=== PATIENT | male | born 1955 | race Caucasian/White ===

== ENCOUNTER 2022-02-17 04:36 | Day surgery (SDC) | payer OTHER, BC ==
[2022-02-15 15:55] VITALS: BMI 24.7
[2022-02-17 08:57] VITALS: RESP 16
[2022-02-17 11:26] VITALS: TEMP 98.2
[2022-02-17 11:56] VITALS: BP 148/64; PULSE 57
== END 2022-02-17 12:07 | disposition home or self-care (01) ==
LOC: JASU-ENDO 04:36
PROVIDERS: ATTEND Internal Medicine Gastroenterology
PROC: 0DJD8ZZ Inspection of Lower Intestinal Tract, Via Natural or Artificial Opening Endoscopic (ICD-10-PCS; principal; 2022-02-17 08:45)
DX: Z12.11 Encounter for screening for malignant neoplasm of colon (principal); Z86.010 Personal history of colon polyps

== ENCOUNTER 2022-11-17 14:17 | Inpatient (IN) | payer OTHER, BC ==
[2022-11-17] MEDS ORDERED: SODIUM CHLORIDE 1,987 ML IV ONE (14:43)
[2022-11-17 15:35] LABS: VENOUS BASE EXCESS -0.6 mmol/L (-2-2); VENOUS O2 SATURATION 41.3 % (70-80); VENOUS PCO2 62.6 mmHg (38-52); VENOUS PH 7.261 (7.310-7.410)
[2022-11-17 15:45] LABS: HEMATOCRIT 35.2 % (35.4-49); HEMOGLOBIN 11.8 GM/dL (11.7-16.9); MCH 30.4 pg (25.7-33.7); MCHC 33.4 g/dl (32.0-35.9); MEAN CELL VOLUME 90.9 fl (80-96); MEAN PLT VOLUME 8.4 fl (7.5-11.1); PLATELET COUNT 207 10^3/uL (134-434); RBC 3.87 M/mm3 (4.00-5.60); RDW 14.9 % (11.9-15.9); WHITE BLOOD COUNT 13.7 K/mm3 (4.0-10.0)
[2022-11-17 15:51] LABS: INR 1.1 (0.83-1.09); PROTHROMBIN TIME (PATIENT) 12.8 SEC (9.7-13.0)
[2022-11-17 15:54] LABS: ACTIVATED PTT 27.1 SECONDS (25.2-36.5)
[2022-11-17 16:14] LABS: CALCIUM 9.5 mg/dL (8.5-10.1)
[2022-11-17 16:15] LABS: ALBUMIN 3.7 g/dl (3.4-5.0); BLOOD UREA NITROGEN 36.7 mg/dL (7-18)
[2022-11-17 16:17] LABS: CREATININE 2.3 mg/dL (0.55-1.3)
[2022-11-17 16:19] LABS: BILIRUBIN,TOTAL 0.7 mg/dL (0.2-1); TOT PROT 8.3 g/dl (6.4-8.2)
[2022-11-17] MEDS ORDERED: ACETAMINOPHEN 1000 MG/100 ML BAG IVPB ONE (16:28)
[2022-11-17 16:33] LABS: ANISOCYTOSIS 1+; MACROCYTOSIS 0
[2022-11-17] MEDS ORDERED: ACETAMINOPHEN INJECTION 100 ML IVPB ONE (16:37)
[2022-11-17] MEDS ORDERED: PIPERACILLIN/TAZOB 3.375 GM 3.375 GM in DEXTROSE 5%-WATER - 50 ML IVPB ONE (17:09)
[2022-11-17] MEDS ORDERED: PIPERACILLIN/TAZOB 2.25 GM 2.25 GM/50 ML BAG IVPB ONE (17:17)
[2022-11-17] MEDS ORDERED: ALBUTEROL SO4 2.5/IPRATROPIUM 0.5 INH SOL 3 ML VIAL.NEB. NEB ONE ×2 (19:27→19:28)
[2022-11-17 20:27] LABS: EPI CELLS 2 /uL (0-25.1); HYALINE CASTS 2 /uL (0-3.1); PH,URINE 5.5 (5.0-8.0); URINE APPEARANCE CLEAR; URINE BACTERIA 11 /uL (0-1359); URINE BILIRUBIN NEGATIVE (NEGATIVE); URINE COLOR YELLOW; URINE GLUCOSE (UA) NEGATIVE (NEGATIVE); URINE KETONE NEGATIVE (NEGATIVE); URINE LEUK ESTERASE NEGATIVE (NEGATIVE); URINE NITRITE NEGATIVE (NEGATIVE); URINE PROTEIN 1+ (NEGATIVE); URINE RBC 7 /uL (0-23.9); URINE WBC 3 /uL (0-25.8)
[2022-11-17 21:17] LABS: VENOUS BASE EXCESS -7.3 mmol/L (-2-2); VENOUS O2 SATURATION 60.6 % (70-80); VENOUS PCO2 44.5 mmHg (38-52); VENOUS PH 7.257 (7.310-7.410)
[2022-11-17] MEDS ORDERED: LIDOCAINE 5% TOPICAL PATCH TP ONE (22:32)
[2022-11-17] MEDS ORDERED: PANTOPRAZOLE SODIUM 40 MG VIAL IVPUSH ONE (22:32)
[2022-11-17] MEDS ORDERED: guaiFENesin/D-METHORPHAN HB 10 ML UNIT-DOSE CUPS PO PRN (22:33)
[2022-11-17] MEDS ORDERED: MAG HYDROX/AL HYDROX/SIMETH 30 ML UNIT-DOSE CUP PO PRN (22:33)
[2022-11-17] MEDS ORDERED: DOCUSATE SODIUM 100 MG CAPSULE (FP) PO PRN (22:33)
[2022-11-17] MEDS ORDERED: ACETAMINOPHEN 1000 MG/100 ML BAG IVPB PRN (22:44)
[2022-11-17] MEDS ORDERED: PIPERACILLIN/TAZOB 2.25 GM 2.25 GM in DEXTROSE 5%-WATER - 50 ML IVPB SCH (23:00)
[2022-11-17] MEDS: SODIUM CHLORIDE 1,000 ML IV SCH (23:37)
[2022-11-18] MEDS: PIPERACILLIN/TAZOB 2.25 GM 2.25 GM in DEXTROSE 5%-WATER - 50 ML IVPB SCH ×2 (00:02→04:47)
[2022-11-18 07:38] LABS: BASO % 0.2 % (0-2.0); EOS % 0.7 % (0-4.5); HEMATOCRIT 28.1 % (35.4-49); HEMOGLOBIN 9.6 GM/dL (11.7-16.9); LYMPH % 9.1 % (8-40); MCH 30.7 pg (25.7-33.7); MCHC 34.1 g/dl (32.0-35.9); MEAN CELL VOLUME 90.2 fl (80-96); MEAN PLT VOLUME 7.7 fl (7.5-11.1); MONO % 6.2 % (3.8-10.2); NEUT % 83.8 % (42.8-82.8); PLATELET COUNT 148 10^3/uL (134-434); RBC 3.12 M/mm3 (4.00-5.60); RDW 14.5 % (11.9-15.9); WHITE BLOOD COUNT 13.6 K/mm3 (4.0-10.0)
[2022-11-18 07:43] LABS: POTASSIUM 4.3 mmol/L (3.5-5.1)
[2022-11-18 07:45] LABS: CALCIUM 8.6 mg/dL (8.5-10.1)
[2022-11-18 07:46] LABS: MAGNESIUM 1.9 mg/dL (1.8-2.4)
[2022-11-18 07:49] LABS: CREATININE 1.5 mg/dL (0.55-1.3); PHOSPHOROUS 3.3 mg/dL (2.5-4.9)
[2022-11-18] MEDS ORDERED: AZITHROMYCIN 250 MG TABLET PO ONE (09:00)
[2022-11-18] MEDS ORDERED: ENOXAPARIN NA (PORCINE) 30 MG/0.3 ML DISP.SYRIN SQ SCH (10:00)
[2022-11-18] MEDS ORDERED: methaDONE HCL 40 MG DISPERSABLE TABLET PO SCH (10:00)
[2022-11-18] MEDS: methylPREDNISolone NA SUCC 40 MG/1 ML VIAL IVPUSH SCH ×2 (10:19→17:33)
[2022-11-18] MEDS: CEFTRIAXONE 1 GM in DEXTROSE 5%-WATER - 50 ML IVPB SCH (10:21)
[2022-11-18] MEDS: ENOXAPARIN NA (PORCINE) 40 MG/0.4 ML DISP.SYRIN SQ SCH (10:22)
[2022-11-18] MEDS ORDERED: LIDOCAINE PATCH REMOVAL MC SCH (11:00)
[2022-11-18] MEDS: ALBUTEROL SO4 2.5/IPRATROPIUM 0.5 INH SOL 3 ML VIAL.NEB. NEB SCH ×3 (11:16→20:10)
[2022-11-18] MEDS ORDERED: PATIENT'S OWN MEDICATION (NON-FORMULARY) (Albuterol Sulfate [Proair Digihaler] 90 MCG Aer. IH SCH (11:45)
[2022-11-18] MEDS: amLODIPine BESYLATE 5 MG TABLET (FP) PO SCH (12:31)
[2022-11-18] MEDS: methaDONE 40 MG, methaDONE 10 MG PO SCH (12:31)
[2022-11-18] MEDS: SODIUM CHLORIDE 1,000 ML IV SCH (21:14)
[2022-11-18] MEDS: ATORVASTATIN CA 10 MG TABLET (FP) PO SCH (21:15)
[2022-11-19] MEDS: SODIUM CHLORIDE 1,000 ML IV SCH (00:59)
[2022-11-19] MEDS: methylPREDNISolone NA SUCC 40 MG/1 ML VIAL IVPUSH SCH ×3 (01:00→17:10)
[2022-11-19] MEDS: methaDONE 40 MG, methaDONE 10 MG PO SCH (05:56)
[2022-11-19] MEDS: ALBUTEROL SO4 2.5/IPRATROPIUM 0.5 INH SOL 3 ML VIAL.NEB. NEB SCH ×4 (07:35→20:20)
[2022-11-19 07:42] LABS: HEMATOCRIT 28.3 % (35.4-49); HEMOGLOBIN 9.7 GM/dL (11.7-16.9); MCH 31.2 pg (25.7-33.7); MCHC 34.3 g/dl (32.0-35.9); MEAN CELL VOLUME 90.9 fl (80-96); MEAN PLT VOLUME 8.5 fl (7.5-11.1); PLATELET COUNT 158 10^3/uL (134-434); RBC 3.12 M/mm3 (4.00-5.60); RDW 14.5 % (11.9-15.9); WHITE BLOOD COUNT 10.7 K/mm3 (4.0-10.0)
[2022-11-19 08:17] LABS: POTASSIUM 5.1 mmol/L (3.5-5.1)
[2022-11-19 08:20] LABS: CALCIUM 9.6 mg/dL (8.5-10.1)
[2022-11-19 08:21] LABS: BLOOD UREA NITROGEN 24.5 mg/dL (7-18)
[2022-11-19 08:24] LABS: CREATININE 1.3 mg/dL (0.55-1.3)
[2022-11-19] MEDS: CEFTRIAXONE 1 GM in DEXTROSE 5%-WATER - 50 ML IVPB SCH (09:23)
[2022-11-19] MEDS: ENOXAPARIN NA (PORCINE) 40 MG/0.4 ML DISP.SYRIN SQ SCH (09:23)
[2022-11-19] MEDS: amLODIPine BESYLATE 5 MG TABLET (FP) PO SCH (09:24)
[2022-11-19] MEDS: AZITHROMYCIN 250 MG TABLET PO SCH (09:26)
[2022-11-19 09:35] LABS: ANISOCYTOSIS 1+; MACROCYTOSIS 1+
[2022-11-19] MEDS ORDERED: TIOTROPIUM BROMIDE 2.5 MCG (SPIRIVA) RESPIMAT INHALER IH SCH ×2 (10:00)
[2022-11-19] MEDS: BUDESONIDE/FORMETEROL FUMARATE 160/4.5 mcg INHALER IH SCH ×2 (13:22→23:29)
[2022-11-19] MEDS ORDERED: ACETAMINOPHEN 1000 MG/100 ML BAG IVPB ONE (18:10)
[2022-11-19] MEDS ORDERED: INSULIN (NOVOLOG) ASPART 100 UNITS/ML 10ML VIAL ONE (21:08)
[2022-11-19] MEDS: ATORVASTATIN CA 10 MG TABLET (FP) PO SCH (21:28)
[2022-11-19] MEDS: INSULIN SLIDING SCALE (NOVOLOG) 1 VIAL SQ SCH (21:36)
[2022-11-19] MEDS: ACETAMINOPHEN 325 MG TABLET (FP) PO PRN (23:29)
[2022-11-20] MEDS: methylPREDNISolone NA SUCC 40 MG/1 ML VIAL IVPUSH SCH ×3 (01:53→17:26)
[2022-11-20] MEDS: methaDONE 40 MG, methaDONE 10 MG PO SCH (06:09)
[2022-11-20] MEDS: INSULIN SLIDING SCALE (NOVOLOG) 1 VIAL SQ SCH ×4 (06:12→23:28)
[2022-11-20] MEDS: ALBUTEROL SO4 2.5/IPRATROPIUM 0.5 INH SOL 3 ML VIAL.NEB. NEB SCH ×4 (07:30→20:21)
[2022-11-20] MEDS: AZITHROMYCIN 250 MG TABLET PO SCH (09:56)
[2022-11-20] MEDS: ENOXAPARIN NA (PORCINE) 40 MG/0.4 ML DISP.SYRIN SQ SCH (09:56)
[2022-11-20] MEDS: amLODIPine BESYLATE 5 MG TABLET (FP) PO SCH (09:56)
[2022-11-20] MEDS: CEFTRIAXONE 1 GM in DEXTROSE 5%-WATER - 50 ML IVPB SCH (09:56)
[2022-11-20] MEDS: BUDESONIDE/FORMETEROL FUMARATE 160/4.5 mcg INHALER IH SCH ×2 (09:57→23:25)
[2022-11-20 10:07] LABS: BASO % 0.1 % (0-2.0); HEMATOCRIT 28.3 % (35.4-49); HEMOGLOBIN 9.8 GM/dL (11.7-16.9); LYMPH % 2.8 % (8-40); MCH 31.1 pg (25.7-33.7); MCHC 34.5 g/dl (32.0-35.9); MEAN CELL VOLUME 90.3 fl (80-96); MEAN PLT VOLUME 8.3 fl (7.5-11.1); MONO % 5.4 % (3.8-10.2); NEUT % 91.7 % (42.8-82.8); PLATELET COUNT 186 10^3/uL (134-434); RBC 3.13 M/mm3 (4.00-5.60); RDW 14.8 % (11.9-15.9); WHITE BLOOD COUNT 10.4 K/mm3 (4.0-10.0)
[2022-11-20 10:42] LABS: POTASSIUM 3.9 mmol/L (3.5-5.1)
[2022-11-20 10:47] LABS: CALCIUM 9.2 mg/dL (8.5-10.1)
[2022-11-20 10:48] LABS: BLOOD UREA NITROGEN 28.2 mg/dL (7-18)
[2022-11-20 10:51] LABS: CREATININE 1.5 mg/dL (0.55-1.3)
[2022-11-20 10:52] LABS: BILIRUBIN,TOTAL 0.5 mg/dL (0.2-1); TOT PROT 7.1 g/dl (6.4-8.2)
[2022-11-20 11:01] LABS: ANISOCYTOSIS 0; MACROCYTOSIS 1+
[2022-11-20] MEDS ORDERED: INSULIN (NOVOLOG) ASPART 100 UNITS/ML 10ML VIAL ONE ×2 (11:26→16:31)
[2022-11-20] MEDS: ATENOLOL 50 MG TABLET (FP) PO SCH (14:47)
[2022-11-20 15:42] VITALS: BMI 25.4
[2022-11-20] MEDS: ATORVASTATIN CA 10 MG TABLET (FP) PO SCH (23:14)
[2022-11-20] MEDS: ACETAMINOPHEN 325 MG TABLET (FP) PO PRN (23:14)
[2022-11-21] MEDS: methylPREDNISolone NA SUCC 40 MG/1 ML VIAL IVPUSH SCH ×2 (01:49→09:27)
[2022-11-21] MEDS: methaDONE 40 MG, methaDONE 10 MG PO SCH (06:39)
[2022-11-21] MEDS: INSULIN SLIDING SCALE (NOVOLOG) 1 VIAL SQ SCH ×4 (06:52→23:37)
[2022-11-21] MEDS: ALBUTEROL SO4 2.5/IPRATROPIUM 0.5 INH SOL 3 ML VIAL.NEB. NEB SCH ×4 (07:15→20:15)
[2022-11-21 09:02] LABS: HEMATOCRIT 33.6 % (35.4-49); HEMOGLOBIN 11.4 GM/dL (11.7-16.9); MCH 30.3 pg (25.7-33.7); MCHC 34.1 g/dl (32.0-35.9); MEAN CELL VOLUME 88.9 fl (80-96); MEAN PLT VOLUME 7.7 fl (7.5-11.1); PLATELET COUNT 260 10^3/uL (134-434); RBC 3.77 M/mm3 (4.00-5.60); RDW 14.6 % (11.9-15.9); WHITE BLOOD COUNT 10.3 K/mm3 (4.0-10.0)
[2022-11-21 09:09] LABS: ACTIVATED PTT 23.5 SECONDS (25.2-36.5)
[2022-11-21 09:11] LABS: INR 1.05 (0.83-1.09); PROTHROMBIN TIME (PATIENT) 12.2 SEC (9.7-13.0)
[2022-11-21 09:16] LABS: POTASSIUM 3.9 mmol/L (3.5-5.1)
[2022-11-21 09:20] LABS: BLOOD UREA NITROGEN 34.7 mg/dL (7-18); CALCIUM 9.7 mg/dL (8.5-10.1)
[2022-11-21 09:23] LABS: CREATININE 1.5 mg/dL (0.55-1.3)
[2022-11-21 09:25] LABS: BILIRUBIN,TOTAL 0.7 mg/dL (0.2-1); TOT PROT 8.3 g/dl (6.4-8.2)
[2022-11-21] MEDS: CEFTRIAXONE 1 GM in DEXTROSE 5%-WATER - 50 ML IVPB SCH (09:26)
[2022-11-21] MEDS: TAMSULOSIN HCL 0.4 MG CAP PO SCH (09:27)
[2022-11-21] MEDS: ENOXAPARIN NA (PORCINE) 40 MG/0.4 ML DISP.SYRIN SQ SCH (09:28)
[2022-11-21] MEDS: amLODIPine BESYLATE 5 MG TABLET (FP) PO SCH (09:28)
[2022-11-21] MEDS: AZITHROMYCIN 250 MG TABLET PO SCH (09:28)
[2022-11-21] MEDS: ATENOLOL 50 MG TABLET (FP) PO SCH (09:28)
[2022-11-21 09:32] LABS: ALBUMIN 3.6 g/dl (3.4-5.0)
[2022-11-21] MEDS: BUDESONIDE/FORMETEROL FUMARATE 160/4.5 mcg INHALER IH SCH ×2 (09:49→23:38)
[2022-11-21 10:27] LABS: ANISOCYTOSIS 0; HELMET CELLS 0; HOWELL-JOLLY BODIES 0; MACROCYTOSIS 0; OVALOCYTE 0; ROULEAU 0; SICKELED CELLS 0; TARGET CELLS 0; TEAR DROP CELLS 0; TOXIC GRANULATION 0
[2022-11-21] MEDS ORDERED: INSULIN (NOVOLOG) ASPART 100 UNITS/ML 10ML VIAL ONE (10:54)
[2022-11-21] MEDS ORDERED: methylPREDNISolone NA SUCC 40 MG/1 ML VIAL IVPUSH SCH (21:00)
[2022-11-21] MEDS: ATORVASTATIN CA 10 MG TABLET (FP) PO SCH (23:35)
[2022-11-22] MEDS: methaDONE 40 MG, methaDONE 10 MG PO SCH (06:10)
[2022-11-22] MEDS: INSULIN SLIDING SCALE (NOVOLOG) 1 VIAL SQ SCH ×2 (06:16→11:22)
[2022-11-22] MEDS: ALBUTEROL SO4 2.5/IPRATROPIUM 0.5 INH SOL 3 ML VIAL.NEB. NEB SCH ×2 (08:25→11:55)
[2022-11-22 08:44] VITALS: RESP 18
[2022-11-22] MEDS: amLODIPine BESYLATE 5 MG TABLET (FP) PO SCH (09:34)
[2022-11-22] MEDS: TAMSULOSIN HCL 0.4 MG CAP PO SCH (09:34)
[2022-11-22] MEDS: AZITHROMYCIN 250 MG TABLET PO SCH (09:34)
[2022-11-22] MEDS: ATENOLOL 50 MG TABLET (FP) PO SCH (09:34)
[2022-11-22] MEDS: BUDESONIDE/FORMETEROL FUMARATE 160/4.5 mcg INHALER IH SCH (09:35)
[2022-11-22] MEDS: CEFTRIAXONE 1 GM in DEXTROSE 5%-WATER - 50 ML IVPB SCH (09:35)
[2022-11-22] MEDS: ENOXAPARIN NA (PORCINE) 40 MG/0.4 ML DISP.SYRIN SQ SCH (09:35)
[2022-11-22] MEDS ORDERED: methylPREDNISolone NA SUCC 40 MG/1 ML VIAL IVPUSH SCH (10:00)
[2022-11-22 15:08] VITALS: BP 123/71; PULSE 84; TEMP 97.9
== END 2022-11-22 15:10 | disposition home or self-care (01) | DRG 193 ==
LOC: JER 14:17 → JERBED 21:42 → J7W 22:54
PROVIDERS: ADMIT Internal Medicine; ATTEND Student in an Organized Health Care Education/Training Program
DX: J18.9 Pneumonia, unspecified organism (principal); J96.01 Acute respiratory failure with hypoxia; J96.02 Acute respiratory failure with hypercapnia; N17.9 Acute kidney failure, unspecified; J44.1 Chronic obstructive pulmonary disease with (acute) exacerbation; F11.20 Opioid dependence, uncomplicated; N18.9 Chronic kidney disease, unspecified; J44.9 Chronic obstructive pulmonary disease, unspecified; I10 Essential (primary) hypertension; N40.0 Benign prostatic hyperplasia without lower urinary tract symptoms
CPT/HCPCS: 0241U-QW; 36415; 70450-TC; 71045-TC-FY; 71250-TC; 74176-TC; 80048; 80053; 81003; 82550; 82553; 82803; 82962; 83605; 83735; 84100; 84484; 85025; 85610; 85730; 86850; 86900; 86901; 87040; 87086; 93005; 93010; 94640; 94660; 97116-GP; 97162-GP; 99285-25

== ENCOUNTER 2023-11-13 10:58 | Emergency (ER) | payer OTHER, BC ==
[2023-11-13 11:11] VITALS: RESP 18; TEMP 98; BMI 25.9
[2023-11-13] MEDS ORDERED: ACETAMINOPHEN INJECTION 100 ML IVPB ONE (12:45)
[2023-11-13] MEDS: ACETAMINOPHEN 1000 MG/100 ML BAG IVPB ONE (12:50)
[2023-11-13 12:51] LABS: BASO % 0.9 % (0-2.0); EOS % 1.7 % (0-4.5); HEMATOCRIT 37.2 % (35.4-49); HEMOGLOBIN 12.6 GM/dL (11.7-16.9); LYMPH % 13.9 % (8-40); MCH 30.1 pg (25.7-33.7); MCHC 33.9 g/dl (32.0-35.9); MEAN CELL VOLUME 88.7 fl (80-96); MEAN PLT VOLUME 7.8 fl (7.5-11.1); MONO % 8.4 % (3.8-10.2); NEUT % 75.1 % (42.8-82.8); PLATELET COUNT 227 10^3/uL (134-434); RDW 15.2 % (11.9-15.9); WHITE BLOOD COUNT 7.6 K/mm3 (4.0-10.0)
[2023-11-13 12:58] LABS: INR 0.97 (0.83-1.09); PROTHROMBIN TIME (PATIENT) 11.2 SEC (9.7-13.0)
[2023-11-13 13:01] LABS: ACTIVATED PTT 28.3 SECONDS (25.2-36.5)
[2023-11-13 13:10] LABS: POTASSIUM 4.7 mmol/L (3.5-5.1)
[2023-11-13 13:13] LABS: CALCIUM 9.8 mg/dL (8.5-10.1)
[2023-11-13 13:14] LABS: ALBUMIN 4.1 g/dl (3.4-5.0); BLOOD UREA NITROGEN 19.1 mg/dL (7-18)
[2023-11-13 13:17] LABS: CREATININE 1.4 mg/dL (0.55-1.3)
[2023-11-13 13:18] LABS: BILIRUBIN,TOTAL 0.8 mg/dL (0.2-1)
[2023-11-13 13:19] LABS: TOT PROT 8.5 g/dl (6.4-8.2)
[2023-11-13 15:08] VITALS: BP 158/76; PULSE 78
== END 2023-11-13 15:09 | disposition home or self-care (01) ==
LOC: JER 10:58
PROC: 3E033NZ Introduction of Analgesics, Hypnotics, Sedatives into Peripheral Vein, Percutaneous Approach (ICD-10-PCS; principal; 2023-11-13)
DX: M79.675 Pain in left toe(s) (principal); R60.0 Localized edema; R26.2 Difficulty in walking, not elsewhere classified; R23.8 Other skin changes; R06.02 Shortness of breath
CPT/HCPCS: 36415; 71046-TC-FY; 73660-TC-LT-FY; 80053; 83880; 84484; 85025; 85610; 85730; 86850; 86900; 86901; 93970-TC; 99285-25; J0131